=== PATIENT | female | born 1955 | race Caucasian/White ===

== ENCOUNTER 2019-01-08 08:14 | Day surgery (SDC) | payer OTHER ==
[2019-01-05 15:34] VITALS: Ht 157.5 cm; Wt 65.9 kg
[~2019-01-08] VITALS: Ht 157.5 cm; Wt 65.9 kg
[2019-01-08] VITALS (9 sets, daily range): BP systolic 106–120; BP diastolic 59–74; PULSE 82–99; RESP 16–25
--- NOTE | 2019-01-08 06:05 | HPN ---
Date/Time of Note Date/Time of Note DATE: 01/08/19 TIME: 06:04 Interval H&P Admission Note Pt. seen H&P reviewed: No system changes JHON COOK MD Jan 08, 2019 06:04
--- NOTE | 2019-01-08 06:07 | OPR ---
Date/Time of Note Date/Time of Note DATE: 01/08/19 TIME: 06:05 Operative Report Procedure Date: Jan 08, 2019 Preoperative Diagnosis Right shoulder acromioclavicular joint with possible rotator cuff tear Postoperative Diagnosis 1. Right shoulder acromioclavicular joint arthritis 2. Right shoulder impingement 3. Right shoulder labral tearing Operation/Procedure Performed 1. Right shoulder arthroscopic distal clavicle excision 2. Right shoulder arthroscopic acromioplasty with coracoacromial ligament release 3. Right shoulder arthroscopic extensive debridement of glenohumeral joint Surgeon see signature line [employer] Kody Delacruz MD Anesthesia Type: general Estimated Blood Loss: minimal Transfusion none Specimen See op note Grafts/Implants See op note Complications none Pt Condition Post Procedure: stable Disposition: PACU Procedure Description FLANGE TURNER SURGEON: Kody Delacruz MD was asked to be present at my request as a result of the complexity associated with this procedure including positioning of the extremities, manipulation of the arthroscope and assistance with time. In my opinion the assistance offered by a surgical tech is insufficient and Dr. Delacruz should be compensated for his time. PROCEDURE IN DETAIL: Following the administration of general anesthesia supplemented with a peripheral nerve block for postoperative pain control, the patient was examined under anesthesia. Examination of the right shoulder revealed significant stiffness with about 130 degrees of forward flexion and 80 degrees abduction. A gentle manipulation was then undertaken and passively she was able to be flexed up to about 150 degrees, abduction 110 degrees, external rotation 80 degrees and internal rotation 20 degrees. Several significant adhesions were noted to be released. The patient was then placed in the left lateral decubitus position. Sterile prep and drape was then undertaken of the left shoulder. Anterior and posterior glenohumeral portals were established. Glenohumeral arthroscopy revealed that the humeral and glenoid articular cartilage had some mild grade 2 changes throughout. In addition, the humeral head had diffuse grade2 changes within the area anterolaterally over the biceps tendon there was grade 2 in nature. The superior labrum was diffusely torn with extensive fraying that extended into the bicipital groove with severe synovitis, consistent with a type I SLAP lesion. In addition, there was severe synovitis in the bicipital groove. The biceps normal to visualization and the anchor was intact. The subscapularis was visualized and this was all with a solid attachment. Further evaluation of the supraspinatus revealed no significant abnormalities. The inner surface was completely normal as was the infraspinatus and teres min or. The superior labrum then debrided extensively from the 9:00 to the 3 o'clock position was undertaken down to stable tissue. Severe synovitis was also debrided down to stable tissue. The subacromial space was then entered and very severe bursal reactive tissue was noted. There was very thickened coracoacromial ligament no significant acromial prominence was noted. The area was then debrided and the anterior acromial process was then skeletonized. Approximately 4-5 mm of the anterior and medial acromion were then resected in a stable flat area was completed. The outer surface of the rotator cuff was then inspected. Severe bursal reactive tissue was debrided. No significant rotator cuff pathology was noted. The subacromial space was then further evaluated medially. The acromioclavicular joint was then skeletonized and a significant inferior osteophyte was noted. The AC joint capsule was then completely open and prepared and the distal clavicle was skeletonized for a distance of 10 mm. The bur was then inserted and 10 mm of the distal clavicle was then excised. The joint was then thoroughly irrigated bony debris removed, the deep tissues were approximated using 4-0 Monocryl, followed by a sterile dressing. A sling was then applied. The patient was awakened and transported to the recovery room in stable condition. JHON COOK MD Jan 08, 2019 06:07
[2019-01-08] MEDS ORDERED: LACTATED RINGER'S 1,000 ML IV SCH (09:30)
[2019-01-08] MEDS ORDERED: MIDAZOLAM 1 MG/ML 2 ML INJ ONE (10:14)
[2019-01-08] MEDS ORDERED: PROPOFOL 20 ML ONE (10:14)
[2019-01-08] MEDS ORDERED: ROPIVACAINE 0.5 % 30 ML VIAL ONE ×2 (10:14→10:15)
[2019-01-08] MEDS ORDERED: FENTAnyl 50 MCG/ML VIAL ONE (10:14)
[2019-01-08] MEDS ORDERED: ROCURONIUM 50 MG INJ ONE (10:14)
--- NOTE | 2019-01-08 10:31 | PREAC ---
Date/Time of Note Date/Time of Note DATE: 01/08/19 TIME: 10:29 Anesthesia Eval and Record Evaluation Time Pre-Procedure Interview DATE: 01/08/19 TIME: 10:29 Age 63 Sex female NPO: 8 hrs Preoperative diagnosis Right Shoulder Pain rotator Cuff Tear Planned procedure Right Shoulder Arthroscopy and Rotator Cuff Repair Past Medical History Past Medical History: Includes Pulm: Asthma Surgery & Anesthesia Issues No known issue Meds Anticoagulation: No Beta Hollie within 24 hr: No Reason Beta Hollie not given: Pt. not on B-Hollie No Active Prescriptions or Reported Meds Current Medications Cefazolin Sodium/ Dextrose 50 ml @ 100 mls/hr PRE-OP ONCE IVPB ; Start 01/08/19 at 11:00; Stop 01/08/19 at 11:29 Bupivacaine HCl/ Morphine Sulfate/ Epinephrine/ Ketorolac Tromethamine/ Clon idine/Sodium Chloride/ Vancomycin HCl INTRA-OP IRR ; Start 01/08/19 at 11:00; Stop 01/08/19 at 19:00 Dexamethasone (Decadron) 2 mg ONCE ONCE PO Last administered on 01/08/19at 09:19; Admin Dose 2 MG; Start 01/08/19 at 11:00; Stop 01/08/19 at 11:01 Lactated Ringer's 1,000 ml @ 0 mls/hr Q0M IV ; Start 01/08/19 at 09:30; Status UNV Meds reviewed: Yes Allergies Coded Allergies: No Known Drug Allergy (Verified Allergy, Unknown, 01/08/19) gabapentin (Verified Adverse Reaction, Unknown, NIGHTMARES, 09/25/18) pregabalin (Verified Adverse Reaction, Unknown, RESTLESS LEG, 09/25/18) Allergies Reviewed: Yes Labs/Studies Labs Reviewed: Reviewed by anesthesiologist test: N/A Studies: ECG (NSR), CXR (WNL) Pre-procedure Exam Last vitals Vital Signs Date Temp Pulse Resp B/P (MAP) Pulse Ox O2 O2 Flow FiO2 Time Delivery Rate 01/08/19 98.0 99 16 112/69 97 Room Air 09:25 (83) Airway: Adequate mouth opening, Adequate thyromental dist Mallampati: Mallampati II Teeth: Normal Lung: Normal Heart: Normal ASA Physical Status ASA physical status: 2 Emergency: None Planned Anesthetic General/MAC: ETT Nerve block: Brachial plexus (right) Planned Pain Management Single shot nerve block, Parenteral pain med Pre-operative Attestations Prior to commencing anesthesia and surgery, the patient was re-evaluated, there was verification of: *The patient's identity *The results of appropriate recent lab work and preoperative vital signs *The above evaluation not changing prior to induction *Anesthetic plan, risk benefits, alternative and complications discussed with patient/family; questions answered; patient/family understands, accepts and wishes to proceed. ROSANNA VILLA MD Jan 08, 2019 10:31
[2019-01-08] MEDS ORDERED: METOCLOPRAMIDE 10 MG INJ IV PRN (11:00)
[2019-01-08] MEDS ORDERED: MEPERIDINE 25 MG INJ IV PRN (11:00)
[2019-01-08] MEDS ORDERED: EPHEDrine SULFATE 50 MG/5 ML SYG IV PRN (11:00)
[2019-01-08] MEDS ORDERED: CEFAZOLIN 2 GM/50 ML (PMX) 50 ML IVPB ONE (11:00)
[2019-01-08] MEDS ORDERED: DIPHENHYDRAMINE 50 MG INJ IV PRN (11:00)
[2019-01-08] MEDS ORDERED: HYDROmorphONE 1 MG/5 ML IV SYRINGE IV PRN ×3 (11:00)
[2019-01-08] MEDS ORDERED: DEXAMETHASONE 2 MG TAB PO ONE (11:00)
[2019-01-08] MEDS ORDERED: FENTAnyl 50 MCG/ML VIAL IV PRN ×3 (11:00)
[2019-01-08] MEDS ORDERED: BUPIVACAINE 0.5% (SDV) 30 ML, morphine SULFATE (PF) 8 MG, EPINEPHrine 0.3 MG, KETOROLAC... IRR SCH ×7 (11:00)
[2019-01-08] MEDS ORDERED: hydrALAzine 20 MG INJ IV PRN (11:00)
[2019-01-08] MEDS ORDERED: OXYCODONE/ACETAMINOPHEN (5/325) TAB PO PRN ×2 (11:00)
[2019-01-08] MEDS ORDERED: LABETALOL HCL 20MG INJ IV PRN (11:00)
[2019-01-08] MEDS ORDERED: ONDANSETRON 4 MG INJ IV PRN (11:00)
--- NOTE | 2019-01-08 11:00 | PAC ---
Date/Time of Note Date/Time of Note DATE: 01/08/19 TIME: 11:00 Post-Anesthesia Notes Post-Anesthesia Note Last documented vital signs Vital Signs Date Temp Pulse Resp B/P (MAP) Pulse Ox O2 O2 Flow FiO2 Time Delivery Rate 01/08/19 97.9 99 16 112/69 97 Room Air 11:07 (83) Activity: WNL Respiratory function: WNL Cardiovascular function: WNL Mental status: Baseline Pain reasonably controlled: Yes Hydration appropriate: Yes Nausea/Vomiting absent: Yes ROSANNA VILLA MD Jan 08, 2019 11:00
[2019-01-08] MEDS ORDERED: DEXAMETHASONE 4 MG/ML 5 ML INJ ONE (11:54)
[2019-01-08] MEDS ORDERED: ONDANSETRON 4 MG INJ ONE (11:54)
[2019-01-08] MEDS ORDERED: KETOROLAC 30 MG INJ ONE (11:54)
[2019-01-08] MEDS ORDERED: METOCLOPRAMIDE 10 MG INJ ONE (11:54)
[2019-01-08] MEDS ORDERED: SUGAMMADEX SODIUM 200 MG/2 ML VIAL IV ONE (11:55)
[2019-01-08] MEDS ORDERED: EPHEDrine 50 MG INJ ONE (11:57)
--- NOTE | 2019-01-08 12:03 | PDOCDIS ---
Discharge Instructions DIAGNOSIS Discharge Diagnosis acromioclavicular joint arthritis with impingement CONDITION [id number] Patient Condition: [id number] Good HOME CARE INSTRUCTIONS: [id number] Diet Instructions: [id number] Regular ACTIVITY: [id number] Activity Restrictions: [id number] Slowly Increase Activity Keep Limb Elevated [id number] Bathing Restrictions: [id number] Shower FOLLOW UP/APPOINTMENTS Follow-up Plan Two weeks SCHOOL/WORK RELEASE May return to School/Work with: With Restrictions School/Work Release Comment: Sling as necessary JHON COOK MD Jan 08, 2019 12:03
== END 2019-01-08 13:20 | disposition home or self-care (01) ==
LOC: SDS 08:14
PROVIDERS: ATTEND Orthopaedic Surgery
DX: M75.41 Impingement syndrome of right shoulder (principal); M19.011 Primary osteoarthritis, right shoulder
CPT/HCPCS: 29824; 29826; J0171; J0690; J0735; J1100; J1170; J1885; J2250; J2274; J2405; J2765; J2795; J3010; J3370; Z7512; Z7610